=== PATIENT | male | born 1945 | race Caucasian/White ===

== ENCOUNTER → 2017-03-16 | Outpatient (REF) | payer MEDICARE, BC | LOC: M SFHCPLAZ 10:21 | PROVIDERS: ATTEND Dermatology | DX: C44.619 Basal cell carcinoma of skin of left upper limb, including shoulder (principal); L57.0 Actinic keratosis | CPT/HCPCS: 11100; 11101; 17000; 17003; 88305; G0463 ==

== ENCOUNTER → 2020-05-11 | Outpatient (REF) | payer MEDICARE, BC | LOC: M LAB REF 09:40 | PROVIDERS: ATTEND Dermatology | DX: L82.0 Inflamed seborrheic keratosis (principal); L57.0 Actinic keratosis | CPT/HCPCS: 11102; 11103; 88305; G0463 ==

== ENCOUNTER → 2020-09-07 | Outpatient (REF) | payer MEDICARE, BC | LOC: M LAB REF 14:01 | PROVIDERS: ATTEND Dermatology | DX: L57.0 Actinic keratosis (principal); L81.4 Other melanin hyperpigmentation ==

== ENCOUNTER → 2023-01-17 | Outpatient (CLI) | payer MEDICARE ==
[~2023-01-17] MED LIST: CLON0.5T2 PO; ONDA-84 PO; ONDA8TAB8 PO; TEMO100C17 PO
== END ==
LOC: M EKG 11:26
PROVIDERS: ATTEND Specialist
DX: C34.90 Malignant neoplasm of unspecified part of unspecified bronchus or lung (principal)

== ENCOUNTER 2023-01-24 09:22 | Emergency (ER) | payer MEDICARE ==
[2023-01-24] MEDS ORDERED: NS 500 ML IV ONE (10:15)
[2023-01-24 10:23] LABS: VENOUS BASE EXCESS 0.8 (-2.0-2.0); VENOUS HCO3 23.8 MEQ/L (23.0-27.0); VENOUS O2 SATURATION 93.8 % (60.0-80.0); VENOUS PARTIAL PRESSURE CO2 33.8 mmHg (38.0-50.0); VENOUS PARTIAL PRESSURE O2 62.9 mmHg (30.0-50.0); VENOUS PH 7.465 UNITS (7.330-7.430); VENOUS TOTAL CO2 24.8 MEQ/L (24.0-28.0)
[2023-01-24 10:34] LABS: BASO % 0.5 % (0.0-1.0); EOS # 0.1 10^3/uL (0.0-0.5); EOS % 2.1 % (0.0-3.0); HEMATOCRIT 42.9 % (42.0-52.0); HEMOGLOBIN 15.4 g/dl (13.5-17.5); LYMPH # 0.2 10^3/uL (1.5-5.0); LYMPH % 3.9 % (24.0-44.0); MEAN CORPUSCULAR HGB CONC 35.9 g/dl (32.0-36.5); MEAN CORPUSCULAR VOLUME 94.7 fl (80.0-96.0); MONO % 15.6 % (2.0-8.0); NEUTROPHILS # 4.7 10^3/uL (1.5-8.5); NEUTROPHILS % 77.6 % (36.0-66.0); PLATELET COUNT, AUTOMATED 159 10^3/uL (150-450); RED BLOOD COUNT 4.53 10^6/uL (4.30-6.10); WHITE BLOOD COUNT 6.1 10^3/uL (4.0-10.0)
[2023-01-24 10:54] LABS: ALBUMIN 3.6 G/DL (3.2-5.2); ALKALINE PHOSPHATASE 94 U/L (46-116); ALT/SGPT 32 U/L (7.0-40); AST/SGOT 25 U/L (<34); BILIRUBIN,DIRECT 0.4 MG/DL (<0.4); BLOOD UREA NITROGEN 18 MG/DL (9-23); CALCIUM LEVEL 9.3 MG/DL (8.3-10.6); CARBON DIOXIDE LEVEL 23 MMOL/L (20-31); CHLORIDE LEVEL 102 MMOL/L (98-107); CREATININE FOR GFR 0.84 MG/DL (0.70-1.30); GLOMERULAR FILTRATION RATE > 60.0 (>42); GLUCOSE, FASTING 115 MG/DL (74-106); POTASSIUM SERUM 4.1 MMOL/L (3.5-5.1); SODIUM LEVEL 135 MMOL/L (136-145); TOTAL PROTEIN 6.1 G/DL (5.7-8.2)
[2023-01-24 10:57] LABS: THYROID STIMULATING HORMONE 2.047 uIU/ML (0.55-4.78)
[2023-01-24 13:09] VITALS: BP 157/93
== END 2023-01-24 13:11 | disposition home or self-care (01) ==
LOC: M ED 09:22
DX: R53.83 Other fatigue (principal); C34.90 Malignant neoplasm of unspecified part of unspecified bronchus or lung; Z92.3 Personal history of irradiation; Z92.21 Personal history of antineoplastic chemotherapy; Z87.891 Personal history of nicotine dependence; Z79.899 Other long term (current) drug therapy

== ENCOUNTER → 2023-02-03 | Outpatient (CLI) | payer MEDICARE ==
[~2023-02-03] MED LIST changes: +PROHANCE 279.3MG/ML 15ML VIAL As Ordered ONE; +PROHANCE 279.3MG/ML 5ML VIAL As Ordered ONE
== END ==
LOC: M RAD 09:31
PROVIDERS: ATTEND Specialist
DX: H57.9 Unspecified disorder of eye and adnexa (principal); C34.90 Malignant neoplasm of unspecified part of unspecified bronchus or lung
CPT/HCPCS: 70543; 70553; A9576

== ENCOUNTER 2023-02-16 15:08 | Inpatient (IN) | payer MEDICARE ==
[~2023-02-16] VITALS: Ht 182.9 cm; Wt 72.3 kg
[~2023-02-16 15:08] MED LIST changes: -PROHANCE 279.3MG/ML 15ML VIAL As Ordered ONE; -PROHANCE 279.3MG/ML 5ML VIAL As Ordered ONE
[2023-02-16 16:00] LABS: BASO # 0.1 10^3/uL (0.0-0.2); BASO % 1.1 % (0.0-1.0); EOS # 0.3 10^3/uL (0.0-0.5); EOS % 7.3 % (0.0-3.0); HEMATOCRIT 39.7 % (42.0-52.0); HEMOGLOBIN 13.6 g/dl (13.5-17.5); LYMPH # 0.3 10^3/uL (1.5-5.0); MEAN CORPUSCULAR HEMOGLOBIN 33.7 pg (27.0-33.0); MEAN CORPUSCULAR HGB CONC 34.3 g/dl (32.0-36.5); MEAN CORPUSCULAR VOLUME 98.3 fl (80.0-96.0); MONO # 0.6 10^3/uL (0.0-0.8); MONO % 13.4 % (2.0-8.0); NEUTROPHILS # 3.3 10^3/uL (1.5-8.5); NEUTROPHILS % 71.8 % (36.0-66.0); PLATELET COUNT, AUTOMATED 194 10^3/uL (150-450); RED BLOOD COUNT 4.04 10^6/uL (4.30-6.10); WHITE BLOOD COUNT 4.6 10^3/uL (4.0-10.0)
[2023-02-16 16:24] LABS: ALKALINE PHOSPHATASE 106 U/L (46-116); ALT/SGPT 20 U/L (7.0-40); AST/SGOT 25 U/L (<34); BILIRUBIN,DIRECT 0.3 MG/DL (<0.4); BILIRUBIN,TOTAL 0.7 MG/DL (0.3-1.2); BLOOD UREA NITROGEN 18 MG/DL (9-23); CARBON DIOXIDE LEVEL 30 MMOL/L (20-31); CHLORIDE LEVEL 105 MMOL/L (98-107); CK-MB VALUE MASS < 1.0 NG/ML (<3.6); CPK CREATINE PHOSPHOKINASE 23 U/L (46-171); CREATININE FOR GFR 0.79 MG/DL (0.70-1.30); GLOMERULAR FILTRATION RATE > 60.0 (>42); GLUCOSE, FASTING 133 MG/DL (74-106); MB/CK RELATIVE INDEX 4.34 (< OR =4); SODIUM LEVEL 139 MMOL/L (136-145); TOTAL PROTEIN 6.2 G/DL (5.7-8.2)
[2023-02-16 16:26] LABS: THYROID STIMULATING HORMONE 1.677 uIU/ML (0.55-4.78)
[2023-02-16] MEDS ORDERED: FUROSEMIDE 40MG/4ML VIAL IV ONE (16:40)
[2023-02-16] MEDS ORDERED: NAPR220C14 PO (17:48)
[2023-02-16] MEDS ORDERED: HOME MED LIST COMPLETE! XX SCH (17:50)
[2023-02-16] MEDS ORDERED: PILL CUTTER 1 EACH XX PRN (18:20)
[2023-02-16 20:40] VITALS: BP 121/80
[2023-02-17 05:56] LABS: BASO # 0.1 10^3/uL (0.0-0.2); BASO % 1.3 % (0.0-1.0); EOS # 0.3 10^3/uL (0.0-0.5); EOS % 6.8 % (0.0-3.0); HEMATOCRIT 38.4 % (42.0-52.0); HEMOGLOBIN 13.2 g/dl (13.5-17.5); LYMPH # 0.5 10^3/uL (1.5-5.0); LYMPH % 10.9 % (24.0-44.0); MEAN CORPUSCULAR HEMOGLOBIN 33.1 pg (27.0-33.0); MEAN CORPUSCULAR HGB CONC 34.4 g/dl (32.0-36.5); MEAN CORPUSCULAR VOLUME 96.2 fl (80.0-96.0); MONO # 0.8 10^3/uL (0.0-0.8); MONO % 17.2 % (2.0-8.0); NEUTROPHILS # 2.9 10^3/uL (1.5-8.5); NEUTROPHILS % 63.6 % (36.0-66.0); PLATELET COUNT, AUTOMATED 174 10^3/uL (150-450); RED BLOOD COUNT 3.99 10^6/uL (4.30-6.10); WHITE BLOOD COUNT 4.6 10^3/uL (4.0-10.0)
[2023-02-17 06:28] LABS: BLOOD UREA NITROGEN 17 MG/DL (9-23); CALCIUM LEVEL 8.9 MG/DL (8.3-10.6); CARBON DIOXIDE LEVEL 29 MMOL/L (20-31); CHLORIDE LEVEL 102 MMOL/L (98-107); CREATININE FOR GFR 0.83 MG/DL (0.70-1.30); GLOMERULAR FILTRATION RATE > 60.0 (>42); GLUCOSE, FASTING 108 MG/DL (74-106); POTASSIUM SERUM 3.5 MMOL/L (3.5-5.1); SODIUM LEVEL 138 MMOL/L (136-145)
[2023-02-17] MEDS ORDERED: ISOVUE-370 76% 100ML VIAL As Ordered ONE (07:25)
[2023-02-17 08:34] VITALS: BP 115/71
[2023-02-17] MEDS: clonazePAM 0.5 MG TAB PO SCH (08:35)
[2023-02-17] MEDS ORDERED: FUROSEMIDE 40MG/4ML VIAL IV SCH (09:00)
[2023-02-17] MEDS ORDERED: methylPREDNISolone 125MG 2ML VIAL IV SCH (10:00)
[2023-02-17] MEDS ORDERED: PIPERACILLIN/TAZOBACTAM SOD 3.375 GM in D5W MINI-BAG PLUS 50 ML IV SCH (10:00)
[2023-02-17] MEDS: DOXYCYCLINE HYCLATE 100MG TABLET PO SCH ×2 (10:36→22:10)
[2023-02-17] MEDS: methylPREDNISolone 125MG 2ML VIAL IV SCH ×2 (10:36→19:00)
[2023-02-17] MEDS: PIPERACILLIN/TAZOBACTAM SOD 4.5 GM in D5W MINI-BAG PLUS 50 ML IV SCH ×3 (10:37→22:10)
[2023-02-17] MEDS ORDERED: POLYVINYL ALCOHOL OPHTH SOLN 15ML (LIQUITEARS) OU PRN (12:40)
[2023-02-17 14:00] VITALS: BP 103/60
[2023-02-17] MEDS: BISACODYL 10MG SUPP PR PRN (19:00)
[2023-02-17 19:33] VITALS: BP 107/62
[2023-02-18] MEDS: methylPREDNISolone 125MG 2ML VIAL IV SCH ×3 (03:12→18:52)
[2023-02-18] MEDS: PIPERACILLIN/TAZOBACTAM SOD 4.5 GM in D5W MINI-BAG PLUS 50 ML IV SCH ×4 (05:40→22:49)
[2023-02-18 06:00] VITALS: BP 108/65
[2023-02-18 06:38] LABS: BASO % 0.2 % (0.0-1.0); HEMATOCRIT 38.9 % (42.0-52.0); HEMOGLOBIN 13.6 g/dl (13.5-17.5); LYMPH # 0.2 10^3/uL (1.5-5.0); LYMPH % 3.6 % (24.0-44.0); MEAN CORPUSCULAR HEMOGLOBIN 33.3 pg (27.0-33.0); MEAN CORPUSCULAR VOLUME 95.1 fl (80.0-96.0); MONO # 0.2 10^3/uL (0.0-0.8); MONO % 2.9 % (2.0-8.0); NEUTROPHILS # 5.4 10^3/uL (1.5-8.5); PLATELET COUNT, AUTOMATED 204 10^3/uL (150-450); RED BLOOD COUNT 4.09 10^6/uL (4.30-6.10); WHITE BLOOD COUNT 5.8 10^3/uL (4.0-10.0)
[2023-02-18 07:10] LABS: BLOOD UREA NITROGEN 23 MG/DL (9-23); CALCIUM LEVEL 9.3 MG/DL (8.3-10.6); CARBON DIOXIDE LEVEL 29 MMOL/L (20-31); CHLORIDE LEVEL 100 MMOL/L (98-107); CREATININE FOR GFR 0.87 MG/DL (0.70-1.30); GLOMERULAR FILTRATION RATE > 60.0 (>42); GLUCOSE, FASTING 153 MG/DL (74-106); POTASSIUM SERUM 3.8 MMOL/L (3.5-5.1); SODIUM LEVEL 136 MMOL/L (136-145)
[2023-02-18] MEDS: DOXYCYCLINE HYCLATE 100MG TABLET PO SCH ×2 (08:24→20:02)
[2023-02-18] MEDS: clonazePAM 0.5 MG TAB PO SCH (08:25)
[2023-02-18] MEDS ORDERED: FUROSEMIDE 40MG/4ML VIAL IV SCH (09:00)
[2023-02-18] MEDS: BISACODYL 10MG SUPP PR PRN (13:21)
[2023-02-18 14:00] VITALS: BP_SYST 115; BP_SYST 126; BP_DIAS 60; BP_DIAS 82
[2023-02-18 20:00] VITALS: BP 142/90
[2023-02-19] MEDS: methylPREDNISolone 125MG 2ML VIAL IV SCH (03:23)
[2023-02-19] MEDS: PIPERACILLIN/TAZOBACTAM SOD 4.5 GM in D5W MINI-BAG PLUS 50 ML IV SCH (04:45)
[2023-02-19 06:00] VITALS: BP 125/77
[2023-02-19 07:13] LABS: BASO % 0.1 % (0.0-1.0); HEMATOCRIT 42.3 % (42.0-52.0); HEMOGLOBIN 14.8 g/dl (13.5-17.5); LYMPH # 0.3 10^3/uL (1.5-5.0); MEAN CORPUSCULAR HEMOGLOBIN 33.4 pg (27.0-33.0); MEAN CORPUSCULAR VOLUME 95.5 fl (80.0-96.0); MONO # 0.5 10^3/uL (0.0-0.8); MONO % 4.3 % (2.0-8.0); NEUTROPHILS # 10.4 10^3/uL (1.5-8.5); NEUTROPHILS % 91.5 % (36.0-66.0); PLATELET COUNT, AUTOMATED 244 10^3/uL (150-450); RED BLOOD COUNT 4.43 10^6/uL (4.30-6.10); WHITE BLOOD COUNT 11.4 10^3/uL (4.0-10.0)
[2023-02-19 07:46] LABS: BLOOD UREA NITROGEN 33 MG/DL (9-23); CALCIUM LEVEL 9.6 MG/DL (8.3-10.6); CARBON DIOXIDE LEVEL 28 MMOL/L (20-31); CHLORIDE LEVEL 99 MMOL/L (98-107); CREATININE FOR GFR 1.04 MG/DL (0.70-1.30); GLOMERULAR FILTRATION RATE > 60.0 (>42); GLUCOSE, FASTING 132 MG/DL (74-106); POTASSIUM SERUM 3.6 MMOL/L (3.5-5.1); SODIUM LEVEL 140 MMOL/L (136-145)
[2023-02-19] MEDS: clonazePAM 0.5 MG TAB PO SCH (09:20)
[2023-02-19] MEDS: DOXYCYCLINE HYCLATE 100MG TABLET PO SCH (09:20)
[2023-02-19] MEDS: ALBUTEROL 90 MCG/ACT 8GM HFA INHALER INH SCH ×3 (12:24→20:09)
[2023-02-19 14:00] VITALS: BP 123/80
[2023-02-19] MEDS ORDERED: PANT40TA29 PO (18:36)
[2023-02-19] MEDS ORDERED: PRED10TA2 PO (18:36)
[2023-02-19] MEDS ORDERED: AMOX875T2 PO (18:36)
[2023-02-19] MEDS ORDERED: VENTAER INH (18:36)
[2023-02-19] MEDS: AUGMENTIN 875 MG TAB PO SCH (19:54)
[2023-02-19 20:35] VITALS: BP 125/80
[2023-02-20 05:25] VITALS: BP 129/71
[2023-02-20] MEDS: ALBUTEROL 90 MCG/ACT 8GM HFA INHALER INH SCH ×2 (06:21→11:41)
[2023-02-20 06:44] LABS: BASO % 0.1 % (0.0-1.0); EOS % 0.4 % (0.0-3.0); HEMATOCRIT 39.8 % (42.0-52.0); HEMOGLOBIN 13.6 g/dl (13.5-17.5); LYMPH # 0.6 10^3/uL (1.5-5.0); LYMPH % 6.6 % (24.0-44.0); MEAN CORPUSCULAR HEMOGLOBIN 33.2 pg (27.0-33.0); MEAN CORPUSCULAR HGB CONC 34.2 g/dl (32.0-36.5); MEAN CORPUSCULAR VOLUME 97.1 fl (80.0-96.0); MONO # 0.9 10^3/uL (0.0-0.8); NEUTROPHILS % 81.7 % (36.0-66.0); PLATELET COUNT, AUTOMATED 211 10^3/uL (150-450); WHITE BLOOD COUNT 8.5 10^3/uL (4.0-10.0)
[2023-02-20] MEDS ORDERED: PRED10TA2 PO (06:58)
[2023-02-20 07:10] LABS: BLOOD UREA NITROGEN 36 MG/DL (9-23); CALCIUM LEVEL 9.5 MG/DL (8.3-10.6); CARBON DIOXIDE LEVEL 30 MMOL/L (20-31); CHLORIDE LEVEL 101 MMOL/L (98-107); CREATININE FOR GFR 0.87 MG/DL (0.70-1.30); GLOMERULAR FILTRATION RATE > 60.0 (>42); GLUCOSE, FASTING 85 MG/DL (74-106); POTASSIUM SERUM 3.3 MMOL/L (3.5-5.1); SODIUM LEVEL 141 MMOL/L (136-145)
[2023-02-20] MEDS: clonazePAM 0.5 MG TAB PO SCH (08:09)
[2023-02-20] MEDS: AUGMENTIN 875 MG TAB PO SCH (08:10)
[2023-02-20] MEDS: BISACODYL 10MG SUPP PR PRN (08:18)
[2023-02-20] MEDS ORDERED: predniSONE 20 MG TAB PO SCH ×2 (09:00→14:00)
== END 2023-02-20 12:55 | disposition home or self-care (01) | DRG 292 ==
LOC: M ED 15:08 → M ED INP 17:53 → M MSPAV 20:29
PROVIDERS: ADMIT Internal Medicine Nephrology; ATTEND Internal Medicine Nephrology
PROC: B246ZZZ Ultrasonography of Right and Left Heart (ICD-10-PCS; principal; 2023-02-17)
DX: I50.31 Acute diastolic (congestive) heart failure (principal); J84.9 Interstitial pulmonary disease, unspecified; C34.90 Malignant neoplasm of unspecified part of unspecified bronchus or lung; J70.0 Acute pulmonary manifestations due to radiation; I27.20 Pulmonary hypertension, unspecified; F41.9 Anxiety disorder, unspecified; G62.9 Polyneuropathy, unspecified; H02.402 Unspecified ptosis of left eyelid; M48.14 Ankylosing hyperostosis [Forestier], thoracic region; I08.2 Rheumatic disorders of both aortic and tricuspid valves; Z90.49 Acquired absence of other specified parts of digestive tract; Z96.643 Presence of artificial hip joint, bilateral; Z87.891 Personal history of nicotine dependence; Z79.899 Other long term (current) drug therapy; Z20.822 Contact with and (suspected) exposure to COVID-19; Z92.3 Personal history of irradiation; Z85.828 Personal history of other malignant neoplasm of skin; Z66 Do not resuscitate

== ENCOUNTER → 2023-04-19 | Outpatient (CLI) | payer MEDICARE ==
[~2023-04-19] MED LIST changes: +AMOX875T2 PO; +NAPR220C14 PO; +PANT40TA29 PO; +PRED10TA2 PO; +VENTAER INH
== END ==
LOC: M RAD 17:05
PROVIDERS: ATTEND Physician Assistant Medical
DX: C34.90 Malignant neoplasm of unspecified part of unspecified bronchus or lung (principal); J84.10 Pulmonary fibrosis, unspecified

== ENCOUNTER 2023-05-16 10:16 | Observation (INO) | payer MEDICARE ==
[~2023-05-16] VITALS: Ht 185.4 cm; Wt 75.3 kg
[~2023-05-16 10:16] MED LIST changes: +ALBUTEROL SULFATE 2.5MG/0.5ML INH NEB SOLN INH ONE; +LIDOCAINE 2% 100MG/5ML SDV (FOR ANES.) As Ordered ONE; +LIDOCAINE PRES-FREE 2% 10ML AMP INH ONE; +MIDAZOLAM INJ 2MG/2ML VIAL As Ordered ONE; +ONDANSETRON 4MG 2ML VIAL As Ordered ONE; +PRED20TA PO; +ROCURONIUM BROMIDE 50MG/5ML VIAL As Ordered ONE; +fentaNYL 100 MCG/2 ML INJECTION As Ordered ONE; +propofoL 200 MG/20 ML VIAL As Ordered ONE
[2023-05-16] MEDS ORDERED: CETACAINE SPRAY 5GM As Ordered ONE (10:46)
[2023-05-16] MEDS ORDERED: EPINEPHrine 1MG/10ML SYRINGE 1.5IN As Ordered ONE (10:47)
[2023-05-16] MEDS ORDERED: LR 1,000 ML IV SCH ×2 (11:00→13:10)
[2023-05-16] MEDS ORDERED: THROMBIN 5,000 UNITS VIAL As Ordered ONE (12:16)
[2023-05-16] MEDS ORDERED: SUGAMMADEX SODIUM 500 MG/5 ML VIAL (BRIDION) As Ordered ONE (13:03)
[2023-05-16] MEDS ORDERED: ONDANSETRON 4MG 2ML VIAL IV PRN (13:10)
[2023-05-16] MEDS ORDERED: fentaNYL 100 MCG/2 ML INJECTION IV PRN (13:10)
[2023-05-16] MEDS ORDERED: HYDROMORPHONE HCL 0.5 MG/ 0.5 ML SYRINGE IV PRN (13:10)
[2023-05-16] MEDS ORDERED: oxyCODONE 5MG TAB PO PRN (13:10)
[2023-05-16] MEDS ORDERED: ESMOLOL INJ 100MG/10ML VIAL As Ordered ONE ×2 (13:25→13:26)
[2023-05-16] MEDS ORDERED: METOPROLOL 5 MG/5 ML VIAL As Ordered ONE (13:30)
[2023-05-16] MEDS ORDERED: METOPROLOL 5 MG/5 ML VIAL IV STA (14:24)
[2023-05-16 14:35] VITALS: BP 111/74
[2023-05-16] MEDS ORDERED: ACETAMINOPHEN TAB 650MG DOSE (2X325MG) PO PRN (15:15)
[2023-05-16 16:26] VITALS: BP 136/71; TEMP 98; O2SAT 97
[2023-05-16] MEDS: LR 1,000 ML IV SCH (17:16)
[2023-05-16] MEDS: METOPROLOL TART 25 MG TABLET PO SCH (17:17)
[2023-05-16 17:44] LABS: BASO % 0.4 % (0.0-1.0); EOS % 0.3 % (0.0-3.0); HEMATOCRIT 42.5 % (42.0-52.0); HEMOGLOBIN 14.3 g/dl (13.5-17.5); LYMPH # 0.2 10^3/uL (1.5-5.0); LYMPH % 2.7 % (24.0-44.0); MEAN CORPUSCULAR HEMOGLOBIN 33.4 pg (27.0-33.0); MEAN CORPUSCULAR HGB CONC 33.6 g/dl (32.0-36.5); MEAN CORPUSCULAR VOLUME 99.3 fl (80.0-96.0); MONO # 0.2 10^3/uL (0.0-0.8); MONO % 2.2 % (2.0-8.0); NEUTROPHILS # 6.4 10^3/uL (1.5-8.5); NEUTROPHILS % 94.1 % (36.0-66.0); PLATELET COUNT, AUTOMATED 160 10^3/uL (150-450); RED BLOOD COUNT 4.28 10^6/uL (4.30-6.10); WHITE BLOOD COUNT 6.8 10^3/uL (4.0-10.0)
[2023-05-16 17:52] LABS: INR 0.91; PROTHROMBIN TIME 12.4 SECONDS (12.5-14.5)
[2023-05-16 18:00] VITALS: O2SAT 96
[2023-05-16 18:00] LABS: BLOOD UREA NITROGEN 22 MG/DL (9-23); CALCIUM LEVEL 8.6 MG/DL (8.3-10.6); CARBON DIOXIDE LEVEL 29 MMOL/L (20-31); CHLORIDE LEVEL 102 MMOL/L (98-107); CREATININE FOR GFR 0.83 MG/DL (0.70-1.30); GLOMERULAR FILTRATION RATE > 60.0 (>42); GLUCOSE, FASTING 100 MG/DL (74-106); PHOSPHORUS LEVEL 4.5 MG/DL (2.4-5.1); POTASSIUM SERUM 4.5 MMOL/L (3.5-5.1); SODIUM LEVEL 137 MMOL/L (136-145)
[2023-05-16 18:04] LABS: THYROID STIMULATING HORMONE 1.204 uIU/ML (0.55-4.78)
[2023-05-16 18:15] LABS: ERYTHROCYTE SEDIMENTATION RATE 16 mm/hr (0-20)
[2023-05-16 20:25] VITALS: BP 102/87; TEMP 97.2; O2SAT 96
[2023-05-16] MEDS: HEPARIN SOD (PORCINE) 5000UNITS/ML 1ML VIAL/SYRINGE SQ SCH (21:08)
[2023-05-17 00:33] VITALS: BP 100/59; TEMP 98.1; O2SAT 97
[2023-05-17 04:00] VITALS: TEMP 98.3
[2023-05-17 04:53] VITALS: BP 113/69; TEMP 98.2; O2SAT 94
[2023-05-17] MEDS: HEPARIN SOD (PORCINE) 5000UNITS/ML 1ML VIAL/SYRINGE SQ SCH (06:00)
[2023-05-17] MEDS: METOPROLOL TART 25 MG TABLET PO SCH ×2 (06:00)
[2023-05-17] MEDS: LR 1,000 ML IV SCH (06:30)
[2023-05-17 08:00] VITALS: BP 149/81; TEMP 97.6; O2SAT 95
== END 2023-05-17 12:29 | disposition home or self-care (01) ==
LOC: M SDC 10:16 → M ED INP 14:12 → M PCU 16:20
PROVIDERS: ADMIT Internal Medicine; ATTEND Internal Medicine
DX: I97.191 Other postprocedural cardiac functional disturbances following other surgery (principal); I47.1 Supraventricular tachycardia; J70.1 Chronic and other pulmonary manifestations due to radiation; Z85.118 Personal history of other malignant neoplasm of bronchus and lung; Z79.52 Long term (current) use of systemic steroids; R60.0 Localized edema; I10 Essential (primary) hypertension; Z79.899 Other long term (current) drug therapy
CPT/HCPCS: 31624; 31628; 31632; 36415; 71045; 71250; 76000; 80048; 83735; 84100; 84443; 85025; 85610; 85652; 86140; 87070; 87102; 87116; 87205; 87206; 88108; 88305; 93005; G0378; J1100; J2250; J2405; J3010; S2900

== ENCOUNTER 2023-06-04 13:29 | Emergency (ER) | payer MEDICARE ==
[~2023-06-04] VITALS: Ht 185.4 cm; Wt 72.3 kg
[~2023-06-04 13:29] MED LIST changes: -ALBUTEROL SULFATE 2.5MG/0.5ML INH NEB SOLN INH ONE; -LIDOCAINE 2% 100MG/5ML SDV (FOR ANES.) As Ordered ONE; -LIDOCAINE PRES-FREE 2% 10ML AMP INH ONE; -MIDAZOLAM INJ 2MG/2ML VIAL As Ordered ONE; -ONDANSETRON 4MG 2ML VIAL As Ordered ONE; -ROCURONIUM BROMIDE 50MG/5ML VIAL As Ordered ONE; -fentaNYL 100 MCG/2 ML INJECTION As Ordered ONE; -propofoL 200 MG/20 ML VIAL As Ordered ONE
[2023-06-04] MEDS ORDERED: TRAM50TA2 PO (13:46)
[2023-06-04] MEDS ORDERED: KETOROLAC 30 MG/ML 1ML VIAL IV ONE (14:50)
[2023-06-04] MEDS ORDERED: predniSONE 10MG TAB PO ONE (15:45)
[2023-06-04 15:50] LABS: BASO % 0.4 % (0.0-1.0); EOS # 0.1 10^3/uL (0.0-0.5); EOS % 0.9 % (0.0-3.0); HEMATOCRIT 51.9 % (42.0-52.0); HEMOGLOBIN 17.9 g/dl (13.5-17.5); LYMPH # 0.3 10^3/uL (1.5-5.0); LYMPH % 3.3 % (24.0-44.0); MEAN CORPUSCULAR HEMOGLOBIN 33.1 pg (27.0-33.0); MEAN CORPUSCULAR HGB CONC 34.5 g/dl (32.0-36.5); MEAN CORPUSCULAR VOLUME 95.9 fl (80.0-96.0); MONO % 10.8 % (2.0-8.0); NEUTROPHILS # 7.9 10^3/uL (1.5-8.5); NEUTROPHILS % 84.1 % (36.0-66.0); PLATELET COUNT, AUTOMATED 128 10^3/uL (150-450); RED BLOOD COUNT 5.41 10^6/uL (4.30-6.10); WHITE BLOOD COUNT 9.4 10^3/uL (4.0-10.0)
[2023-06-04 16:27] LABS: RSV AMPLIFICATION NEGATIVE (NEGATIVE)
[2023-06-04 17:01] LABS: ALBUMIN 3.2 G/DL (3.2-5.2); ALKALINE PHOSPHATASE 157 U/L (46-116); ALT/SGPT 49 U/L (7.0-40); AST/SGOT 90 U/L (<34); BILIRUBIN,DIRECT 0.2 MG/DL (<0.4); BILIRUBIN,TOTAL 0.7 MG/DL (0.3-1.2); BLOOD UREA NITROGEN 32 MG/DL (9-23); CALCIUM LEVEL 9.1 MG/DL (8.3-10.6); CARBON DIOXIDE LEVEL 26 MMOL/L (20-31); CHLORIDE LEVEL 101 MMOL/L (98-107); CREATININE FOR GFR 0.98 MG/DL (0.70-1.30); GLOMERULAR FILTRATION RATE > 60.0 (>42); GLUCOSE, FASTING 104 MG/DL (74-106); POTASSIUM SERUM 4.2 MMOL/L (3.5-5.1); SODIUM LEVEL 138 MMOL/L (136-145)
[2023-06-04] MEDS: MORPHINE 4 MG/ML 1ML VIAL IV PRN ×2 (18:47→19:43)
[2023-06-04] MEDS ORDERED: methocarbamoL 750 MG TAB PO ONE (19:35)
[2023-06-04] MEDS ORDERED: LIDOCAINE 5% (LIDODERM) PATCH TD ONE (19:35)
[2023-06-05] MEDS: MORPHINE 4 MG/ML 1ML VIAL IV PRN ×2 (02:51→05:05)
[2023-06-05] MEDS ORDERED: HYDROMORPHONE HCL 0.5 MG/ 0.5 ML SYRINGE IV PRN (06:35)
[2023-06-05 07:14] VITALS: BP 183/92; TEMP 96.9; O2SAT 94
== END 2023-06-05 07:35 | disposition short-term general hospital (02) ==
LOC: M ED 13:29 → EDBD 13:29 → M ED 06-05 07:35
DX: C72.0 Malignant neoplasm of spinal cord (principal); M51.26 Other intervertebral disc displacement, lumbar region; M25.78 Osteophyte, vertebrae; M48.07 Spinal stenosis, lumbosacral region; I10 Essential (primary) hypertension; C34.90 Malignant neoplasm of unspecified part of unspecified bronchus or lung; J44.9 Chronic obstructive pulmonary disease, unspecified
CPT/HCPCS: 72148; 80048; 80076; 85025; 87631; 96374; 96375; 96376; 99284; J1170; J1885; J7512